=== PATIENT | female | born 1980 | race Caucasian/White ===

== ENCOUNTER 2016-10-28 21:27 | Emergency (ER) | payer MEDICAID ==
[~2016-10-28] VITALS: Ht 157.5 cm; Wt 75.3 kg
--- NOTE | 2016-10-28 22:18 | Emergency Room Report ---
History of Present Illness Time Seen by [id number] Presenting Problem in Triage Pt arrived:Walked Presenting Problem:MIGRAIN HEADACHE UPON AWAKENING. HAS A RECENT SINUS INFECTION - NOT SEEN BY A DOCTOR FOR - WORSENING MIGRAINE PAIN SAYS IT FEELS LIKE HER NORMAL MIGRAINS Onset of symptoms date/time:10/28 or onset unknown for: Treatment Prior to Arrival: [facility] AT [address] [employer] Provided by:SELF Sepsis Risk Assessment: Temp: 98 B/P: 138/100 MAP: 112 Pulse: 80 Resp: 12 Recent fever? N Clinical Suspician of Infection? Y Mental Status: 1 - Regular (Normal Baseline) Sepsis Risk:Low Sepsis Risk Have you (or family members/close friends) recently traveled outside the [place]? N If Yes, where/when: Have you had exposure to infectious disease within the past month? TB? Other? Specify: Source patient, RN notes reviewed, family, old records Exam Limitations no limitations Comment pt with acute excerbation of her migraines but has had uri/bronchial illness- no trauma or rash and no neuro sx and no fever - all sx over the last 2 days Cardiac Chest Pain Chest pain indicative of cardiac No Timing/Duration this evening Severity moderate ALLERGIES Coded Allergies: No Known Allergies (10/19/15) Home Medications Reported Medications Clarithromycin (Biaxin) 500 MG PO BID BENZONATATE (Benzonatate) 100 MG PO DAILY Prednisone (Prednisone 10MG) 10 MG PO BID No Home Medications (NO HOME MEDICATIONS) 1 EACH XX ONCE History Medical History General CAD? No Angina: No ID: No Hypertension? No Hyperlipidemia? No CHF? No DVT? No PE? No COPD? No Asthma? Yes Anemia? No GERD? No Gastric ulcers? No GI Bleed? No Hernia? No Thyroid Problems? No Hypothyroidism? No CVA? No Seizures? No Diabetes? No Renal Insuffiency? No End Stage Renal Disease? No UTI? No Stones? No BPH? No GB Disease: No Nephritic Syndrome? No Asplenia? No Hepatitis? No Sickle Cell Disease? No Arthritis? No Migraines? Yes Cataracts? No Glaucoma? No MRSA? No HIV? No TB? No Anxiety? No Depression? No Cancer? No Immunization Hx DT/Tetanus UNKNOWN Surgical Hx Previous Surgery?Y LYMPH NODE REMOVED APPEDECTOMY T&A [employer] Hx LMP N/A Social History Smoking Hx Smoker: Former Smoker Tobacco: No Packs/day < 1 Pack Are you/the child exposed to second-hand smoke: No Alcohol Alcohol: No Drugs none Review of Systems All Other Systems Reviewed and Negative Constitutional denies fever Eyes see HPI, photophobia, denies drainage, denies vision change ENT denies: ear discharge, epistaxis, throat pain. Respiratory denies cough, denies shortness of breath, denies wheezing Cardiovascular denies chest pain, denies palpitations, denies syncope Gastrointestinal denies abdominal pain, denies diarrhea, denies vomiting Genitourinary denies: dysuria, frequency, hesitancy, hematuria. Musculoskeletal denies back pain, denies joint pain, denies joint swelling, denies neck pain Skin denies rash Psychiatric/Neurological see HPI, headache, denies seizure Physical Exam Vital Signs Vital Signs Date Time Temp Pulse Resp B/P Pulse O2 O2 Flow FiO2 Ox Delivery Rate 10/28 2238 59 20 110/66 98 10/29 2235 98.0 77 14 137/77 100 10/28 2233 14 10/29 2131 98.0 80 12 138/100 100 - WBC >12,000 or <4,000 or 10% bands? 2 or more SIRS Criteria Met? B/P:138/100 MAP:112 Creatinine >2.0? UA output<0.5ml/kg/hr for 2 hrs? Platelet count >100,000? Lactate >2.0mmol/1? INR >1.2 or PTT > than 60 sec? Evidence of Organ Dysfunction? Provider documented clinical suspician of infection? Y Sepsis Criteria Count: 1 Sepsis Risk: Low Sepsis Risk General Appearance no apparent distress Eye Exam - bilateral eye PERRL, bilateral eye EOMI Ear, Nose, Throat normal ENT inspection Neck supple Respiratory Status No: respiratory distress. Cardiovascular regular rate/rhythm Peripheral Pulses Pulses normal Yes Extremities normal inspection Strength 4 Upper Ext (L), 4 Upper Ext (R), 4 Lower Ext (L), 4 Lower Ext (R) Neurologic alert, medical lab assistant II-XII nml as tested, no motor/sensory deficits Glascow Coma Scale Glascow Coma Scale Response Value EYE response: 4 Spontaneously 4 MOTOR response: 6 OBEYS 6 VERBAL response: 5 Oriented & Converses 5 Total 15 Reflexes Reflexes normal No Mental status normal mood/affect Skin no rash cons.w/shingles Medical Decision Making LABS/Meds/Orders Pt receiving controlled substance in ED? No Results/Orders Laboratory Tests 10/28/162199: WBC 6.2, RBC 5.16, Hgb 15.0, Hct 44.3, MCV 85.7, RDW 11.8, Plt Count 205, MPV 7.7, Gran % 54.7, Gran # 3.4, Lymphocytes % 37.4, Monocytes % 5.8, Eosinophils % 1.7, Basophils % 0.4, Lymphocytes # 2.3, Monocytes # 0.4, Eosinophils # 0.1, Basophils # 0.0, PUBS MCHC 34.0, MCH 29.1 Current Medication Orders Sig/Paula Start time Last Medication Dose Route Stop Time Status Admin Acetaminophen/ 1 MYLES ONCE ONE 10/28 2314 AC Codeine Phosphate PO 10/29 2315 Levofloxacin 500 MG ONCE ONE 10/28 2314 AC PO 10/29 2315 Methylprednisolone 125 MG ONCE ONE 10/28 2314 AC Sodium Succinate IV 10/29 2315 Promethazine HCl 1 MYLES ONCE ONE 10/28 2314 AC PO 10/29 2315 Diphenhydramine HCl 25 MG ONCE ONE 10/28 2229 DC IV 10/28 2230 Ketorolac 30 MG ONCE ONE 10/28 2199 DC 10/28 Tromethamine IV 10/28 2200 223 Promethazine HCl 12.5 MG ONCE ONE 10/28 2199 DC 10/28 IV 10/28 2200 223 Sodium Chloride 1,000 ML .Q1H1M 10/28 2199 DC 10/28 IV 10/28 2300 2234 Sodium Chloride 10 ML PRN PRN 10/28 2199 AC IV 10/29 214 Sodium Chloride 25 ML ONCE ONE 10/28 2199 DC 10/28 IV 10/28 2214 2234 Promethazine HCl 0 .STK-MED ONE 10/28 2150 DC .ROUTE Sodium Chloride 1,000 ML .STK-MED ONE 10/28 2150 DC IV Sodium Chloride 25 ML .STK-MED ONE 10/28 2150 DC IV Ketorolac 0 .STK-MED ONE 10/28 2149 DC Tromethamine .ROUTE Sodium Chloride 10 ML PRN PRN 10/28 2144 AC IV 10/29 2144 Orders Procedure Date/time Status DIET-NOTHING BY MOUTH 10/29 B Active IV SALINE LOCK 10/28 2146 Active CBC WITH AUTO DIFF 10/28 2146 Complete Departure Departure Time of Disposition 2306 Disposition DC Home or Self Care(routine) Clinical Impression Primary Impression: Headache Qualifiers: Headache type: unspecified Headache chronicity pattern: acute headache Intractability: not intractable Qualified Code: R51 - Headache Secondary Impressions: Bronchitis Condition STABLE Patient Instructions DI for Headache Additional Instructions fluids and use meds and call pcp in am Discharge Counseling Counseled pt/family regarding diagnosis, test results, medications/RX, follow up needs Prescriptions Current Visit Scripts Prednisone (Prednisone 20MG) 20 MG PO BID #10 TAB Azithromycin (Zithromycin (Z-MYLES) 250MG Tab) 250 MG PO DAILY #6 TAB TAKE TWO (2) TABLETS ON DAY 1, THEN ONE (1) TABLET DAY #2 THRU #5 ED Critical Care Critical Care No at [id number]
[2016-10-28 22:40] LABS: LYMPH # 2.3 K/mm3 (0.7-4.5); LYMPH % 37.4 % (10-50.0)
[2016-10-28 23:15] VITALS: BP 112/56
== END 2016-10-28 23:15 | disposition home or self-care (01) ==
LOC: ER 21:27
PROVIDERS: Emergency Medicine
DX: R51 Headache (principal); J45.909 Unspecified asthma, uncomplicated; Z87.891 Personal history of nicotine dependence; Z79.52 Long term (current) use of systemic steroids; Z79.899 Other long term (current) drug therapy